=== PATIENT | female | born 1980 | race Caucasian/White ===

== ENCOUNTER 2020-01-25 10:13 | Emergency (ER) | payer SELFPAY ==
[2020-01-25 10:27] VITALS: BP 165/102; PULSE 81; RESP 18; TEMP 36.7; O2SAT 100
--- NOTE | 2020-01-25 10:43 | PC.NURSE ---
Report given to Fanta Warren
[2020-01-25 11:03] LABS: Basophils Absolute Auto 0.04 K/mm3 (0.00-0.10); Basophils Percent Auto 0.7 % (0.0-1.0); Eosinophils Absolute Auto 0.15 K/mm3 (0.02-0.50); Eosinophils Percent Auto 2.7 % (1.0-6.0); Hematocrit 38.4 % (35.0-49.0); Hemoglobin 12.7 g/dL (12.0-15.0); Immature Granulocyte Absolute 0.02 K/mm3 (0.00-0.00); Immature Granulocyte Percent A 0.4 % (0.0-0.0); Lymphocytes Absolute Auto 1.07 K/mm3 (1.10-4.50); Lymphocytes Percent Auto 19.4 % (18.0-42.0); Mean Corpuscular HGB Conc 33.1 g/dL (32.0-36.0); Mean Corpuscular Hemoglobin 31.7 pg (27.0-31.0); Mean Corpuscular Volume 95.8 fL (78.0-102.0); Mean Platelet Volume 9.5 fl (9.2-11.8); Monocytes Absolute Auto 0.44 K/mm3 (0.10-0.90); Neutrophils Absolute Auto 3.8 K/mm3 (1.7-7.2); Neutrophils Percent Auto 68.8 % (50.0-70.0); Platelet Count Result 217 K/mm3 (150-420); Red Blood Count 4.01 M/mm3 (4.20-5.40); Red Cell Distribution Width 12.2 % (11.6-14.4); White Blood Count 5.5 K/mm3 (4.8-10.8)
[2020-01-25 11:07] VITALS: BP 143/95; BP 155/109; PULSE 76; PULSE 95
--- NOTE | 2020-01-25 11:08 | ED.ABDPAIN ---
HPI - Abdominal Pain General Chief Complaint: Abdominal Pain Stated Complaint: abd cramping, heavy vaginal bleeding Source: patient Mode of arrival: ambulatory Limitations: no limitations History of Present Illness HPI narrative: This is a 40-year-old female that presents with abdominal cramping and some heavy vaginal bleeding with passing clots that started approximately 8 weeks ago that is intermittent, currently there is no bleeding patient has a history of depression, chronic low back pain and ADHD. Currently there is some no dysuria no chest pain no shortness of breath no fever chills, there is currently no nausea vomiting no diarrhea or constipation. Patient is currently not taking any control. MD elicited complaint: abdominal pain Onset (ago): week(s) Pain Consistency: intermittent Location: suprapubic Severity: mild Quality: cramping Migration to: no migration Exacerbating factors: nothing Relieving factors: nothing Associated symptoms: denies other symptoms Related Data Home Medications Medication Instructions Recorded Confirmed escitalopram oxalate 20 mg PO DAILY 10/13/19 01/25/20 hydrocodone-acetaminophen 1 tablet PO BID PRN 10/13/19 01/25/20 dextroamphetamine-amphetamine 20 mg PO DAILY 01/25/20 01/25/20 [Adderall] Allergies Allergy/AdvReac Type Severity Reaction Status Date / Time No Known Allergies Allergy Unknown Unverified 12/10/15 07:51 Review of Systems Review of Systems: All systems reviewed & are unremarkable except as noted in HPI and below PMFSH Past Medical History Medical History Depression Exam Const: General: no acute distress and alert Orientation/consciousness: patient oriented x3 HENMT: Head: normal to inspection Eyes: Conjunctivae: conjunctivae normal Pupils: Equal, round and reactive pupils present Neck: Neck: normal visual inspection Chest: Chest palpation & inspection: normal inspection of the chest Resp: Effort & Inspection: normal respiratory effort Cardio: Rate: regular rate Rhythm: regular rhythm : General: Yes no CVA tenderness Other: pelvic exam did not reveal any current bleeding and no clots in the vaginal wall. Back/Spine/Pelvis: Back: no CVA tenderness Skin: General skin exam: normal color Rashes: no rashes Neuro: General: patient oriented x3, moves all extremities and no meningeal signs Course Vital Signs Vital signs: Vital Signs Temperature 36.7 C 01/25/20 10:27 Pulse Rate 81 01/25/20 10:27 Respiratory Rate 18 01/25/20 10:27 Blood Pressure 165/102 H 01/25/20 10:27 Pulse Oximetry 100 01/25/20 10:27 Temperature 36.7 C 01/25/20 10:27 Pulse Rate 95 01/25/20 11:07 Respiratory Rate 18 01/25/20 10:27 Blood Pressure 155/109 H 01/25/20 11:07 Pulse Oximetry 100 01/25/20 10:27 MDM - Abdominal Pain Lab Data Result diagrams: 01/25/20 10:49 01/25/20 10:49 Labs: Lab Results 01/25/20 01/25/20 01/25/20 Range/Units 10:49 10:49 10:49 WBC 5.5 (4.8-10.8) K/mm3 RBC 4.01 L (4.20-5.40) M/mm3 Hgb 12.7 (12.0-15.0) g/dL Hct 38.4 (35.0-49.0) % MCV 95.8 (78.0-102.0) fL MCH 31.7 H (27.0-31.0) pg MCHC 33.1 (32.0-36.0) g/dL RDW 12.2 (11.6-14.4) % Plt Count 217 (150-420) K/mm3 MPV 9.5 (9.2-11.8) fl Immature Gran % (Auto) 0.4 H (0.0-0.0) % Neut % (Auto) 68.8 (50.0-70.0) % Lymph % (Auto) 19.4 (18.0-42.0) % Burnet % (Auto) 8.0 (2.0-11.0) % Eos % (Auto) 2.7 (1.0-6.0) % Baso % (Auto) 0.7 (0.0-1.0) % Lymph # (Auto) 1.07 L (1.10-4.50) K/mm3 Burnet # (Auto) 0.44 (0.10-0.90) K/mm3 Eos # (Auto) 0.15 (0.02-0.50) K/mm3 Baso # (Auto) 0.04 (0.00-0.10) K/mm3 Abs Immat Gran (auto) 0.02 H (0.00-0.00) K/mm3 Absolute Neuts (auto) 3.8 (1.7-7.2) K/mm3 Absolute Nucleated RBC 0.00 (0.00-0.00) K/mm3 Nucleated RBC % 0.0 (0-0.0) %
[2020-01-25 11:09] LABS: Alanine Aminotransferase 29 U/L (14-59); Albumin Level 3.3 g/dL (3.4-5.0); Alkaline Phosphatase 95 U/L (46-116); Anion Gap 11.7 mmol/L (7-16); Aspartate Amino Transferase 20 U/L (15-37); Bilirubin,Total 0.1 mg/dL (0.00-1.00); Blood Urea Nitrogen 11 mg/dL (7-18); Calcium 8.2 mg/dL (8.5-10.1); Carbon Dioxide 28 mmol/L (21-32); Chloride 106 mmol/L (98-108); Estimated CRCL calculation 79 ml/min; Estimated Glomerular Filt Rate > 60; Glucose 102 mg/dL (70-99); Osmolality Calculated 291 mOsm/kg (285-295); Potassium 4.7 mmol/L (3.5-5.1); Sodium 141 mmol/L (136-145); Total Protein 6.2 g/dL (6.4-8.2)
[2020-01-25 11:20] LABS: Beta HCG Quantitative < 1.00 mIU/mL (0-6)
[2020-01-25 11:28] VITALS: RESP 16
== END 2020-01-25 11:31 | disposition home or self-care (01) ==
PROVIDERS: Emergency Provider Emergency Medicine; PCP Emergency Medicine
DX: N93.8 Other specified abnormal uterine and vaginal bleeding (principal)
CPT/HCPCS: 36415; 80053; 84702; 85025; 85610; 85730; 99283; 99284

== ENCOUNTER 2021-03-11 08:49 | Emergency (ER) | payer OTHER, SELFPAY ==
[2021-03-11 09:10] VITALS: BP 161/109; PULSE 88; RESP 16; TEMP 37.1; O2SAT 100
--- NOTE | 2021-03-11 09:14 | ED.GENADULT ---
HPI - General Adult General Chief complaint: Extremity Problem,Nontraumatic Stated complaint: LEGS ARE SWOLLEN Source: patient Mode of arrival: ambulatory Limitations: no limitations History of Present Illness HPI narrative: this is a 41-year-old female with a history of drug abuse currently on Suboxone and Adderall that she takes as needed currently no primary care physician, presents today with some nonpitting edema lower extremities with no calf pain no redness no erythema in her lower extremities, with no shortness of breath no fever chills no cough or congestion no chest pain. Patient also has a blood pressure of 1 50s over 108. Onset (ago): day(s) Location: lower extremity Severity: mild Related Data Home Medications Medication Instructions Recorded Confirmed buprenorphine-naloxone 1 film SUBLINGUAL BID 03/11/21 03/11/21 Allergies Allergy/AdvReac Type Severity Reaction Status Date / Time No Known Allergies Allergy Unknown Unverified 12/10/15 07:51 Review of Systems Review of Systems: All systems reviewed & are unremarkable except as noted in HPI and below PMFSH Past Medical History Medical History (Updated 03/11/21 @ 09:17 by Wilfrid Hernandez MD) Depression Exam Const: General: no acute distress Orientation/consciousness: patient oriented x3 HENMT: Head: normal to inspection Eyes: Conjunctivae: conjunctivae normal Pupils: Equal, round and reactive pupils present Chest: Chest palpation & inspection: normal inspection of the chest Resp: Effort & Inspection: normal respiratory effort Cardio: Rate: regular rate Rhythm: regular rhythm GI: GI Palp: Yes Soft to palpation Percussion: Yes normal to percussion Urinary Catheter: Urinary Catheter: patent and draining Skin: General skin exam: normal color Neuro: General: patient oriented x3 and moves all extremities Extrem: General: normal to inspection and edema Other: Lower extremity edema nonpitting with no calf pain or tenderness Psych: Appearance: grossly normal Mental Status: mental status grossly normal Affect: normal affect Course Course Emergency Course: patient received 25 mg hydrochlorothiazide and advised to establish care with primary care physician to evaluate her elevated blood pressure Critical Care Time Critical Care Time Critical Care Time: No Discharge Plan Discharge Clinical Impression: Lower extremity edema Hypertension Qualifiers: Hypertension type: unspecified Qualified Code(s): I10 - Essential (primary) hypertension Patient Disposition: Home, Self-Care Condition: Stable Instructions: Antibiotic Form, Hypertension (ED), Edema (ED) Additional Instructions: advised to take medicine as prescribed and follow-up with primary care physician within 1 week for further evaluation treatment. Prescriptions: New hydrochlorothiazide 12.5 mg tablet 12.5 mg PO DAILY Qty: 30 RF: 0 No Action buprenorphine-naloxone 8-2 mg film 1 film sublingual BID RF: 0 Follow-up/Referrals: UNKNOWN,DOCTOR [Primary Care Provider] - Time of Disposition: 09:18
[2021-03-11] MEDS: hydroCHLOROthiazide 25 MG TABLET PO (09:19)
[2021-03-11 09:25] VITALS: RESP 16
[2021-03-11 09:33] VITALS: BP 137/103
== END 2021-03-11 09:25 | disposition home or self-care (01) ==
PROVIDERS: Emergency Provider Emergency Medicine
DX: R60.9 Edema, unspecified (principal); I10 Essential (primary) hypertension
CPT/HCPCS: 99283; A9270

== ENCOUNTER 2022-06-14 17:26 | Outpatient (CLI) | payer OTHER, SELFPAY ==
[2022-06-16 17:51] LABS: TB Skin Test Site Left Arm
[2022-06-16 17:52] LABS: TB Skin Test Erythema 0 mm; TB Skin Test Induration 0 mm (0-10); TB Skin Test Interpretation Negative (Negative)
== END 2022-06-14 17:27 | disposition home or self-care (01) ==
LOC: CHSLAB 17:28
PROVIDERS: PCP Family Medicine; Visit Provider Family Medicine
DX: Z00.00 Encounter for general adult medical examination without abnormal findings (principal)
CPT/HCPCS: 36415; 86580